=== PATIENT | female | born 1980 | race Caucasian/White ===

== ENCOUNTER 2016-08-15 20:24 | Emergency (ER) | payer BC ==
[2016-08-15 20:43] VITALS: BP 133/80
[2016-08-15] MEDS ORDERED: Albuterol/Ipratropium NEB.SOL* Albuterol 2.5 MG/Ipratropium 0.5 MG 3 ML INH ONE (21:25)
--- NOTE | 2016-08-15 22:05 | RAD ---
HISTORY: Pain, congestion, shortness of breath COMPARISONS: None VIEWS: 2: Frontal dual-energy and lateral views of the chest. FINDINGS: CARDIOMEDIASTINAL SILHOUETTE: The cardiomediastinal silhouette is normal. PAT: There is calcified right hilar left PLEURA: The costophrenic angles are sharp. No pleural abnormalities are noted. LUNG PARENCHYMA: The lungs are clear. ABDOMEN: The upper abdomen is clear. There is no subphrenic gas. BONES AND SOFT TISSUES: No bone or soft tissue abnormalities are noted. OTHER: Metallic jewelry is noted in relation to the anterior chest IMPRESSION: NO ACTIVE CARDIOPULMONARY DISEASE. Evidence of exposure to granulomatous disease..
--- NOTE | 2016-08-17 16:35 | UC ---
Sae Mayorga Michael, scribed for Sangeeta Palacio MD on 08/15/16 at 2123 . Shortness of Breath HPI - HPI Summary HPI Summary: 36 y/o female comes to [facility] presenting with "I feel like when I had bronchitis" x approx 4 days ago. Describes feeling like needs to take deeper breaths. Occasional discomfort in upper chest back. Some cough, but not excessive. 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 The pt denies abd pain, recent travel , LE swelling, and dyspnea. The PMHx is significant for bronchitis and eczema. She states her symptoms feel similar to when she was dx with bronchitis. Has inhalers at home, up to date per pt. - History of Current Complaint Chief Complaint: UCRespiratory Stated Complaint: CHEST CONGESTION Time Seen by Provider: 08/15/16 21:09 Hx Obtained From: Patient, Medical Records Hx Last Menstrual Period: IUD Onset/Duration: Gradual Onset, Lasting Days, Still Present Aggrevating Factors: Nothing Associated Signs & Symptoms: Positive: Other - SOB. back pain.. Negative: Cough (Productive) - negative-abd. bilateral LE swelling. dyspnea., Cough ( Nonproductive) - Allergy/Home Medications Allergies/Adverse Reactions: Allergies Allergy/AdvReac Type Severity Reaction Status Date / Time No Known Allergies Allergy Verified 08/15/16 20:43 Home Medications: Home Medications Omeprazole CAP* [Prilosec CAP* 20 MG] 08/15/16 [History] PMH/Surg Hx/FS Hx/Imm Hx - Additional Past Medical History Additional PMH: eczema. bronchitis. Previously Healthy: Yes - Surgical History Surgical History: None - Family History Known Family History: Negative: Diabetes - Social History Occupation: Employed Full-time Lives: Alone Alcohol Use: None Substance Use Type: None Smoking Status (MU): Former Smoker Type: eCigareadelaida Review of Systems Constitutional: Negative, Fatigue Skin: Negative Eyes: Negative ENT: Negative Respiratory: Shortness Of Breath - see hpi, Cough Cardiovascular: Negative Gastrointestinal: Negative Genitourinary: Negative Motor: Negative Neurovascular: Negative Musculoskeletal: Negative, Other: - back pain Neurological: Negative Psychological: Negative All Other Systems Reviewed And Are Negative: Yes Physical Exam Triage Information Reviewed: Yes Appearance: Well-Nourished Vital Signs: Initial Vital Signs Temp 97.9 F 08/15/16 20:40 Pulse 77 08/15/16 20:40 Resp 16 08/15/16 20:40 BP 133/80 08/15/16 20:40 Pulse Ox 99 08/15/16 20:40 Vital Signs Reviewed: Yes Eye Exam: Normal - eyes a little watery ENT Exam: Normal - ? post pharyngeal redness, no swelling, no sores / exudates, uvula midline. ENT: Positive: Tonsillar swelling Neck exam: Normal - no adenopathy appreciated Neck: Positive: Supple, Nontender, No Lymphadenopathy Respiratory: Positive: Chest non-tender, Lungs clear, Normal breath sounds, No respiratory distress, Other: - no dyspnea. no tachypnea. nml repiratory rate. Cardiovascular: Positive: RRR, No Murmur, Pulses Normal, Brisk Capillary Refill Abdomen Description: Positive: Nontender, No Organomegaly, Soft, Other: - no rebound. Negative: Guarding Bowel Sounds: Positive: Present Musculoskeletal Exam: Normal Musculoskeletal: Positive: Strength Intact Neurological Exam: Normal - nonfocal. grossly intact. Psychological Exam: Normal - conversing easily Psychological: Positive: Age Appropriate Behavior Skin Exam: Normal - no visible or reported rashes Diagnostics - Radiology CXR Xray Interpretation: Positive (See Comments) - NO ACTIVE CARDIOPULMONARY DISEASE. Evidence of exposure to granulomatous disease Radiology Interpretation Completed By: Radiologist - EKG Cardiac Rhythm: Sinus: Normal - 74 bpm. QTc 450. [id number]. Shortness of Breath Dx - Course Course Of Treatment: pt received 1 neb INH: Albuterol/Ipratropium- 2.5Mg/.5Mg. Strep Test: negative. Reviewed CXR with pt. No previous chest imaging study to compare with. Advised need to f/u with PCP, this week. Advised to go to the ED for worse or new problems. Rx as below. Questions answered to the best of my ability. - Differential Dx/Diagnosis Provider Diagnoses: bronchitis Discharge - Discharge Plan Condition: Stable Disposition: HOME Prescriptions: Azithromyxin ANDERS (NF) [Z-Anders (Zithromax) 250 mg tabs #6] 2 tab PO .TODAY, THEN 1 DAILY #6 tab Fluconazole [Diflucan 150 MG (NF)] 150 mg PO ONCE #2 tab predniSONE TAB* [Deltasone TAB*] 10 mg PO DAILY #11 tab Patient Education Materials: Upper Respiratory Infection (ED) Forms: *Work Release Referrals: Marielle Andrade PA [Primary Care Provider] - Additional Instructions: Follow up with your primary care physician - call on Thursday for appointment this week, if possible. Go to the Emergency Department for worse or new problems in the meantime. The documentation as recorded by the Sae mccauley Michael accurately reflects the service I personally performed and the decisions made by me, Sangeeta Palacio MD.
== END 2016-08-15 22:54 | disposition home or self-care (01) ==
LOC: UCEAST 20:24
DX: J40 Bronchitis, not specified as acute or chronic (principal); L30.9 Dermatitis, unspecified; F17.290 Nicotine dependence, other tobacco product, uncomplicated; Z87.09 Personal history of other diseases of the respiratory system
CPT/HCPCS: 71020; 87651; 93005; 99212; A9270-GY; G0463